=== PATIENT | female | born 1975 | race Two or more races ===

== ENCOUNTER 2021-02-23 05:53 | Emergency (ER) | payer MEDICAID ==
[~2021-02-23] VITALS: Ht 157.5 cm; Wt 77.1 kg
[2021-02-23 05:57] VITALS: BP 141/90
[2021-02-23] MEDS ORDERED: KETOROLAC 60 MG/2 ML VIAL IM ONE (06:05)
[2021-02-23] MEDS ORDERED: ACET-8386 PO ×2 (06:16→06:54)
[2021-02-23] MEDS ORDERED: IBUP-2213 PO ×2 (06:16→06:54)
[2021-02-23 06:58] VITALS: BP 138/92
== END 2021-02-23 06:58 | disposition home or self-care (01) ==
LOC: MED 05:53
DX: M54.5 Low back pain (principal)
CPT/HCPCS: 96372; 99283; J1885

== ENCOUNTER 2024-05-31 18:07 | Emergency (ER) | payer MEDICAID ==
[~2024-05-31] VITALS: Ht 152.4 cm; Wt 81.6 kg
[~2024-05-31 18:07] MED LIST: ACET-8905 PO; IBUP-2213 PO
[2024-05-31 18:24] VITALS: BP 145/76; PULSE 87; RESP 18; TEMP 97.9; O2SAT 98
[2024-05-31 19:35] VITALS: O2SAT 98
[2024-05-31 19:53] LABS: BASOPHILS % (AUTO) 0.3 % (0.0-2.0); EOSINOPHILS % (AUTO) 0.3 % (0.0-4.0); HEMATOCRIT 40.6 % (36-48); HEMOGLOBIN 13.5 g/dL (12.0-16.0); LYMPHOCYTES # (AUTO) 1.1 K/uL (2.5-16.5); LYMPHOCYTES % (AUTO) 8.5 % (20.5-51.1); MEAN CORPUSCULAR HEMOGLOBIN 29 pg (27-31); MEAN CORPUSCULAR HGB CONC 33 g/dL (33-37); MEAN CORPUSCULAR VOLUME 88.6 fL (80-94); MONOCYTES # (AUTO) 0.7 K/uL (0.8-1.0); NEUTROPHILS # (AUTO) 11.6 K/uL (1.8-7.7); NEUTROPHILS % (AUTO) 85.9 % (42.2-75.2); PLATELET COUNT (AUTO) 248 K/uL (140-450); RED BLOOD CELL COUNT(AUTO) 4.59 MIL/uL (4.20-5.40); RED CELL DISTRIBUTION WIDTH 13.1 % (11.6-13.7); WHITE BLOOD COUNT (AUTO) 13.5 K/uL (4.8-10.8)
[2024-05-31 20:05] LABS: CALCIUM 8.8 mg/dL (8.5-10.1); CARBON DIOXIDE 27.6 mmol/L (21-32); CREATININE 0.8 mg/dL (0.6-1.3); POTASSIUM 4.6 mmol/L (3.5-5.1)
[2024-05-31 20:14] LABS: BILIRUBIN,URINE NEGATIVE (NEGATIVE); BLOOD, URINE 3+ (NEGATIVE); COLOR,URINE YELLOW (YELLOW); LEUKOCYTE ESTERASE ,URINE TRACE (NEGATIVE); NITRITE, URINE POSITIVE (NEGATIVE); PROTEIN,URINE NEGATIVE (NEGATIVE); UGLUCOSE 3+ (NEGATIVE); UROBILINOGEN,URINE 0.2 EU/dL (0.2 - 1)
[2024-05-31] MEDS ORDERED: CEPH-588 PO (20:37)
[2024-05-31 20:40] LABS: APPEARANCE,URINE HAZY (CLEAR)
[2024-05-31 20:41] LABS: BACTERIA,URINE 2+ /HPF (None Seen); MUCUS,URINE 2+ /LPF (None Seen); SQUAMOUS EPITHELIAL CELL,UR 4-10 (MOD) /LPF (0-3 (FEW))
== END 2024-05-31 20:45 | disposition home or self-care (01) ==
LOC: MED 18:07
DX: N39.0 Urinary tract infection, site not specified (principal); R42 Dizziness and giddiness; E11.9 Type 2 diabetes mellitus without complications; Z79.899 Other long term (current) drug therapy
CPT/HCPCS: 36415; 71045; 80048; 81001; 82948; 85025; 87086; 87186; 99284